=== PATIENT | male | born 1965 | race Hispanic/Latino ===

== ENCOUNTER 2016-12-13 13:57 | Emergency (ER) | payer MEDICAID ==
[~2016-12-13] VITALS: Ht 152.4 cm; Wt 100.0 kg
[~2016-12-13 13:57] MED LIST: BACLOFEN10 MG PO; LOPID600 MG PO; METFORMIN850 MG PO; NAPROSYN500 MG OR; NITROGLYCER0.4 MG SL; NITROSTAT0.4 MG SL; NYSTATIN100000 M4 TOP; TRAMADOL HYDROC50 MG PO; ZITHROMAX250 MG PO
[2016-12-13] MEDS ORDERED: ASPIRIN81 MG PO (14:07)
[2016-12-13] MEDS ORDERED: BACTRIM DS1 TAB PO (15:46)
[2016-12-13] MEDS ORDERED: ULTRAM50 M1 PO (15:46)
[2016-12-13 15:53] VITALS: BP 130/83
== END 2016-12-13 16:03 | disposition home or self-care (01) | DRG 603 ==
LOC: ED 13:57
PROC: 0H98XZZ Drainage of Buttock Skin, External Approach (ICD-10-PCS; principal; 2016-12-13)
DX: L02.31 Cutaneous abscess of buttock (principal); B95.61 Methicillin susceptible Staphylococcus aureus infection as the cause of diseases classified elsewhere; S30.860A Insect bite (nonvenomous) of lower back and pelvis, initial encounter

== ENCOUNTER 2016-12-14 14:41 | Emergency (ER) | payer MEDICAID ==
[~2016-12-14] VITALS: Ht 167.6 cm; Wt 103.0 kg
[~2016-12-14 14:41] MED LIST changes: +ASPIRIN81 MG PO; +BACTRIM DS1 TAB PO; +ULTRAM50 M1 PO
--- NOTE | 2016-12-14 15:52 | NUR ---
PROVIDER AT BEDSIDE FOR EVALUATION
[2016-12-14 16:22] LABS: HEMATOCRIT 42.7 % (39.0-50.0); HEMOGLOBIN 14.6 g/dl (14.0-18.0); IMMATURE GRANULOCYTES 0.4 % (0.0-1.0); MEAN CELL VOLUME 87.1 fL CALC (80.0-100.0); MEAN CORPUSCULAR HGB 29.8 pG CALC (26.0-32.0); MEAN CORPUSCULAR HGB CONC 34.2 g/L CALC (32.0-36.0); NEUT# 7.17 thou/uL (1.82-7.42); RED BLOOD COUNT 4.9 mill/uL (4.70-6.10); RED CELL DISTRI WIDTH 12.6 % (11.5-15.5)
[2016-12-14 16:51] LABS: ALBUMIN 4.2 g/dL (3.2-5.0); ALKALINE PHOSPHATASE 71 u/l (38-126); ANION GAP 15 (6-22 (CALC)); BILIRUBIN, TOTAL 0.8 mg/dL (0.0-1.4); BUN 12 mg/dL (9-20); BUN/CREATININE RATIO 20 (12-20 (CALC)); CALCIUM 9.5 mg/dL (8.4-10.2); CARBON DIOXIDE 25 mmol/l (22-30); CHLORIDE 97 mmol/l (95-108); CREATININE 0.6 mg/dL (0.7-1.3); GFR > 60 ML/MIN (>=60 (CALC)); GFR FOR AFR.AMER. > 60 ML/MIN (>=60 (CALC)); GLUCOSE 170 mg/dL (75-110); POTASSIUM 4.1 mmol/l (3.5-5.1); SGOT/AST 23 u/l (17-59); SGPT/ALT 27 u/l (21-72); SODIUM 133 mmol/l (137-146); TOTAL PROTEIN 7.6 g/dL (6.3-8.2)
--- NOTE | 2016-12-14 16:52 | NUR ---
PATIENT RESTING AWAITING ROOM ASSIGNMENT PAIN IN BUTTOCKS 3 ON 0-10 SCALE
--- NOTE | 2016-12-14 17:52 | NUR ---
PATIENT RESTING AWAITING RADIOLOGY RESULTS PAIN 3 ON 0-10 SCALE. PATIENT EXPLAINED NO FOOD OR DRINK UNTIL RADIOLOGY RESULTS ARE RETURNED
--- NOTE | 2016-12-14 18:28 | NUR ---
PATIENT RESTING AWAITING ROOM ASSIGNMENT PAIN 2 ON 0-10 SCALE PATIENT MEDICATED FOR FEVER
--- NOTE | 2016-12-14 19:00 | NUR ---
PT REFUSED ADMISSION. PT STATED HE NEEDED TO GO HOME AND TAKE CARE OF SOME THINGS. Patient decides to leave AMA. Multiple attempts made to ecourage patient to remain here for continued treatment. Explained to patient all risks of leaving against medical advice including . Pt verbalized understanding of all risks. Pt also encouraged to return to [facility] at any time, especially if symptoms continue or become worse. Pt verbalized understanding.
[2016-12-14 19:02] VITALS: BP 118/63
--- NOTE | 2016-12-14 19:17 | NUR ---
ADMITTING MD AWARE OF AMA.
== END 2016-12-14 19:02 | disposition left against medical advice (07) | DRG 603 ==
LOC: ED 14:41 → ED-I 18:13 → ED 18:25 → MS2 18:26 → ED 18:26 → MS2 19:02
PROVIDERS: Emergency Medicine
DX: L03.317 Cellulitis of buttock (principal); E11.9 Type 2 diabetes mellitus without complications; E78.00 Pure hypercholesterolemia, unspecified; I25.10 Atherosclerotic heart disease of native coronary artery without angina pectoris; J45.909 Unspecified asthma, uncomplicated; F17.210 Nicotine dependence, cigarettes, uncomplicated; Z91.19 Patient's noncompliance with other medical treatment and regimen

== ENCOUNTER 2017-01-21 10:09 | Emergency (ER) | payer MEDICAID ==
[~2017-01-21] VITALS: Ht 167.6 cm; Wt 100.0 kg
[2017-01-21 11:26] VITALS: BP 123/83
== END 2017-01-21 11:26 | disposition home or self-care (01) | DRG 696 ==
LOC: ED 10:09
DX: R36.9 Urethral discharge, unspecified (principal); E11.9 Type 2 diabetes mellitus without complications; E78.00 Pure hypercholesterolemia, unspecified; J45.909 Unspecified asthma, uncomplicated; I25.10 Atherosclerotic heart disease of native coronary artery without angina pectoris; F17.210 Nicotine dependence, cigarettes, uncomplicated

== ENCOUNTER 2017-01-29 21:14 | Emergency (ER) | payer MEDICAID ==
[~2017-01-29] VITALS: Ht 167.6 cm; Wt 110.0 kg
[2017-01-29 21:38] LABS: HEMOGLOBIN 14.9 g/dl (14.0-18.0); IMMATURE GRANULOCYTES 0.3 % (0.0-1.0); MEAN CELL VOLUME 87.1 fL CALC (80.0-100.0); MEAN CORPUSCULAR HGB 29.5 pG CALC (26.0-32.0); MEAN CORPUSCULAR HGB CONC 33.9 g/L CALC (32.0-36.0); NEUT# 5.19 thou/uL (1.82-7.42); RED BLOOD COUNT 5.05 mill/uL (4.70-6.10); RED CELL DISTRI WIDTH 13.6 % (11.5-15.5)
[2017-01-29 22:00] LABS: ALBUMIN 4.3 g/dL (3.2-5.0); ALKALINE PHOSPHATASE 59 u/l (38-126); ANION GAP 15 (6-22 (CALC)); BILIRUBIN, TOTAL 0.4 mg/dL (0.0-1.4); BUN 14 mg/dL (9-20); BUN/CREATININE RATIO 20 (12-20 (CALC)); CALCIUM 9.6 mg/dL (8.4-10.2); CARBON DIOXIDE 26 mmol/l (22-30); CHLORIDE 99 mmol/l (95-108); CREATININE 0.7 mg/dL (0.7-1.3); GFR > 60 ML/MIN (>=60 (CALC)); GFR FOR AFR.AMER. > 60 ML/MIN (>=60 (CALC)); GLUCOSE 271 mg/dL (75-110); POTASSIUM 4.5 mmol/l (3.5-5.1); SGOT/AST 19 u/l (17-59); SGPT/ALT 33 u/l (21-72); SODIUM 136 mmol/l (137-146); TOTAL PROTEIN 7.3 g/dL (6.3-8.2)
[2017-01-29 22:12] LABS: MYOGLOBIN 30 ng/mL (0 - 121)
[2017-01-29 22:59] LABS: BARBITURATES NEGATIVE (NEGATIVE); COCAINE NEGATIVE (NEGATIVE); METHADONE NEGATIVE (NEGATIVE); OXCYCODONE NEGATIVE (NEGATIVE); TETRAHYDROCANNABIONOL POSITIVE (NEGATIVE); TRICYLIC ANTIDEPRESSANTS NEGATIVE (NEGATIVE)
[2017-01-29 23:36] VITALS: BP 114/61
== END 2017-01-29 23:36 | disposition left against medical advice (07) | DRG 313 ==
LOC: ED 21:14
PROVIDERS: Emergency Medicine
DX: R07.9 Chest pain, unspecified (principal); I25.10 Atherosclerotic heart disease of native coronary artery without angina pectoris; E11.9 Type 2 diabetes mellitus without complications; E78.00 Pure hypercholesterolemia, unspecified; J45.909 Unspecified asthma, uncomplicated; F17.210 Nicotine dependence, cigarettes, uncomplicated; Z91.19 Patient's noncompliance with other medical treatment and regimen

== ENCOUNTER 2017-06-06 11:49 | Emergency (ER) | payer MEDICAID ==
[~2017-06-06] VITALS: Ht 167.6 cm; Wt 109.0 kg
[2017-06-06 13:23] LABS: ALBUMIN 5.2 g/dL (3.2-5.0); ALKALINE PHOSPHATASE 111 u/l (38-126); ANION GAP 21 (6-22 (CALC)); BILIRUBIN, TOTAL 1.3 mg/dL (0.0-1.4); BUN 22 mg/dL (9-20); BUN/CREATININE RATIO 35 (12-20 (CALC)); CALCIUM 11.1 mg/dL (8.4-10.2); CARBON DIOXIDE 19 mmol/l (22-30); CHLORIDE 99 mmol/l (95-108); CREATININE 0.6 mg/dL (0.7-1.3); GFR > 60 ML/MIN (>=60 (CALC)); GFR FOR AFR.AMER. > 60 ML/MIN (>=60 (CALC)); GLUCOSE 322 mg/dL (75-110); LIPASE 406 u/l (23-300); POTASSIUM 4.8 mmol/l (3.5-5.1); SGOT/AST 31 u/l (17-59); SGPT/ALT 37 u/l (21-72); SODIUM 134 mmol/l (137-146); TOTAL PROTEIN 9.1 g/dL (6.3-8.2)
[2017-06-06 13:28] LABS: HEMATOCRIT 53.7 % (39.0-50.0); HEMOGLOBIN 18.3 g/dl (14.0-18.0); IMMATURE GRANULOCYTES 0.7 % (0.0-1.0); MEAN CELL VOLUME 88.3 fL CALC (80.0-100.0); MEAN CORPUSCULAR HGB 30.1 pG CALC (26.0-32.0); MEAN CORPUSCULAR HGB CONC 34.1 g/L CALC (32.0-36.0); NEUT# 7.83 thou/uL (1.82-7.42); RED BLOOD COUNT 6.08 mill/uL (4.70-6.10); RED CELL DISTRI WIDTH 12.4 % (11.5-15.5)
[2017-06-06 15:08] LABS: URINE BILIRUBIN - DIPSTICK SMALL (NEGATIVE); URINE BLOOD DIPSTICK NEGATIVE (NEGATIVE); URINE CLARITY SL CLOUDY; URINE COLOR YELLOW; URINE GLUCOSE - DIPSTICK >=1000 mg/dL (NEGATIVE); URINE KETONE TRACE mg/dL (NEGATIVE); URINE LEUK ESTERASE NEGATIVE (NEGATIVE); URINE NITRITE - DIPSTICK NEGATIVE (Negative); URINE PROTEIN - DIPSTICK Trace mg/dL (NEG-TRACE); URINE SPECIFIC GRAVITY >=1.030
[2017-06-06] MEDS ORDERED: ZOFRAN4 M1 PO (15:34)
[2017-06-06 15:39] VITALS: BP 125/73
== END 2017-06-06 15:39 | disposition home or self-care (01) | DRG 392 ==
LOC: ED 11:49
PROVIDERS: Family Medicine
DX: K52.9 Noninfective gastroenteritis and colitis, unspecified (principal); R10.84 Generalized abdominal pain; R11.2 Nausea with vomiting, unspecified; R79.89 Other specified abnormal findings of blood chemistry
CPT/HCPCS: Q9967